=== PATIENT | female | born 1960 | race Caucasian/White ===

== ENCOUNTER → 2023-12-17 13:30 | Outpatient (REF) | payer MEDICARE, OTHER, SELFPAY | LOC: RAD 13:30 | PROVIDERS: ATTENDING PHYSICIAN Internal Medicine Rheumatology; FAMILY PHYSICIAN Family Medicine | DX: M25.549 Pain in joints of unspecified hand (principal); M79.642 Pain in left hand; M79.641 Pain in right hand | CPT/HCPCS: 73110; 73130 ==